=== PATIENT | male | born 1955 | race Caucasian/White ===

== ENCOUNTER 2017-12-28 19:35 | Emergency (ER) | payer OTHER ==
[2017-12-28] MEDS ORDERED: LET GEL TOPICAL 1 EA SYR TP ONE ×2 (19:59→20:00)
--- NOTE | 2017-12-28 21:11 | EDPHY ---
H & P Time Seen by Provider: 12/28/17 19:46 HPI/ROS: This patient had carpal tunnel release surgery by Dr. Peterson 9 days prior to arrival without complication and relates that he slipped on stairs a course field this afternoon landing on his right wrist with dehiscence of the surgical incision. He reports only skin discomfort without any bony pain or other injuries from the incident. He relates that there had been a small amount of clear discharge from the wound over proceeding days but no purulent discharge or other complaints. He states the discomfort is currently very mild. ROS: Constitutional: No fevers recently Neuro: No new numbness or tingling the affected extremity Musculoskeletal: No bony pain or other injuries from the fall. 5 point review of symptoms is performed and otherwise negative with exception of pertinent positives and negatives listed in HPI and ROS Smoking Status: Never smoked Physical Exam: Physical Exam Vital signs are normal. General: No acute distress HEENT: Atraumatic. Eyes: Pupils equal and react to light. Extraocular motions are intact. Lungs: No respiratory distress. Cardiac: Brisk capillary refill is intact throughout. Pulses are 2+ and symmetric in the affected extremity. Skin: No rash or pallor. Surgical incision site to the left volar wrist with Ethilon horizontal mattress sutures still in place but the proximal 3 and 0.5 cm or so of a approximately 5 cm wound has dehisced. The distal 1/2 cm remains closed. Subcutaneous tissues evident with the wound open by few mm and proximal portion of the wound. There is mild bleeding from the proximal portion of the wound. There is no surrounding skin erythema warmth to touch fluctuance. Extremities: Atraumatic normal except for left wrist: Left wrist: No bony tenderness. Retains good range of motion. No ecchymosis or swelling. Neuro: Alert with no sensorimotor deficits in the affected extremity. Constitutional: Initial Vital Signs Temperature (C) 36.9 C 12/28/17 19:42 Heart Rate 80 12/28/17 19:42 Respiratory Rate 18 12/28/17 19:42 Blood Pressure 149/95 H 12/28/17 19:42 O2 Sat (%) 95 12/28/17 19:42 O2 Delivery Mode Room Air Allergies/Adverse Reactions: No Known Allergies Allergy (Unverified 12/28/17 19:41) Home Medications: Medication Instructions Recorded Lipitor 12/28/17 Prilosec 12/28/17 MDM/Departure - MDM Procedures: The wound is 3 and 0.5 cm in length in terms of the open part-total wound length is 5 cm with distal wound still closed by existing horizontal mattress sutures. The wound was copiously irrigated with saline after chlorhexidine scrub. The wound was explored for foreign bodies and none were found. The wound was prepped and draped in the normal sterile fashion. The wound was anesthetized using let solution followed by 1% plain lidocaine with 27 gauge needle -4 mL with good effect The edges were reapproximated using 4 0 Prolene running sutures - 12 Total with good hemostasis and cosmesis. The patient tolerated the procedure well. There were no complications. He is counseled regarding wound care. A dressing was placed by our nurse Medications Given: Discontinued Medications Tetracaine/Epinephrine/Lidocaine (Let Gel Topical) 1 ea TP EDNOW ONE Stop: 12/28/17 20:00 Last Admin: 12/28/17 20:01 Dose: 1 ea ED Course/Re-evaluation: I spoke with Dr. Brown his surgeon over the phone. Dr. Rooney at scene of photo of the wound the patient sent earlier in the evening and he agrees with plan to place him additional sutures the existing wound. Close examination reveals that there is no actual rupture of existing sutures or not the came on tied simply the wound opened from the impact of the fall. - Depart Disposition: Home, Routine, Self-Care Clinical Impression: Surgical wound dehiscence Qualifiers: Encounter type: initial encounter Qualified Code(s): T81.31XA - Disruption of external operation (surgical) wound, not elsewhere classified, initial encounter Condition: Good Instructions: Care For Your Stitches (ED) Additional Instructions: Surgical wound dehiscence with sutures placed Plan: Keep the wound clean and dry for the next 2 days Then clean daily with warm soapy water Follow-up this week with your surgeon Ibuprofen Tylenol if needed for discomfort Return emergency department if he develops significant bleeding, redness, discharge or other concerns for infection. Referrals: Junior Candelario MD [Primary Care Provider] - As per Instructions
[2017-12-28 21:18] VITALS: BP 128/83
== END 2017-12-28 21:18 | disposition home or self-care (01) ==
LOC: CED 19:35
PROC: 0HQFXZZ Repair Right Hand Skin, External Approach (ICD-10-PCS; principal; 2017-12-28)
DX: T81.31XA Disruption of external operation (surgical) wound, not elsewhere classified, initial encounter (principal)